=== PATIENT | female | born 1995 | race African-American/Black ===

== ENCOUNTER 2017-07-17 23:18 | Emergency (ER) | payer OTHER ==
[~2017-07-17] VITALS: Ht 195.6 cm; Wt 81.6 kg
[2017-07-18] MEDS ORDERED: IPRATROPIUM BROMIDE (0.02%) 0.5MG/2.5ML NEB HHN STA ×2 (00:19→03:26)
[2017-07-18] MEDS ORDERED: PREDNISONE 20MG TABLET PO STA (00:19)
[2017-07-18] MEDS ORDERED: ALBUTEROL (0.083%) 2.5MG/3ML NEB HHN STA ×2 (00:19→03:26)
[2017-07-18] MEDS ORDERED: KETOROLAC 60MG/2ML VIAL IM ONE (03:30)
[2017-07-18 04:32] VITALS: BP 132/80
== END 2017-07-18 04:36 | disposition home or self-care (01) ==
LOC: ER 23:18
DX: J45.909 Unspecified asthma, uncomplicated (principal); F17.200 Nicotine dependence, unspecified, uncomplicated; Z98.890 Other specified postprocedural states
CPT/HCPCS: 71045; 81025; 93005; 94640; 96372; 99284; J1885; J7512; J7611

== ENCOUNTER 2018-10-20 15:16 | Emergency (ER) | payer MEDICAID, OTHER ==
[~2018-10-20] VITALS: Ht 162.6 cm; Wt 76.9 kg
[2018-10-20] MEDS: IBUPROFEN 600MG TABLET PO ONE (16:45)
[2018-10-20] MEDS: HYDROCODONE/ACETAMINOPHEN 5/325MG TABLET PO ONE (16:47)
[2018-10-20] MEDS: NEOMY SULF/BACITRAC ZN/POLY OINT 28GM TOP SCH (17:13)
[2018-10-20 18:27] VITALS: BP 118/74
== END 2018-10-20 18:50 | disposition home or self-care (01) ==
LOC: ER 15:16
DX: S16.1XXA Strain of muscle, fascia and tendon at neck level, initial encounter (principal); S00.83XA Contusion of other part of head, initial encounter; J45.909 Unspecified asthma, uncomplicated; F17.200 Nicotine dependence, unspecified, uncomplicated; V49.49XA Driver injured in collision with other motor vehicles in traffic accident, initial encounter; Y93.89 Activity, other specified; Y92.89 Other specified places as the place of occurrence of the external cause; Y99.8 Other external cause status; Z98.890 Other specified postprocedural states
CPT/HCPCS: 70486; 72125; 81025; 99284; Z7610

== ENCOUNTER 2018-12-17 20:06 | Emergency (ER) | payer MEDICAID, OTHER ==
[~2018-12-17] VITALS: Ht 160 cm; Wt 73.0 kg
[2018-12-17 21:06] VITALS: BP 115/59
== END 2018-12-17 23:40 | disposition left against medical advice (07) ==
LOC: ER 20:06
DX: M54.9 Dorsalgia, unspecified (principal); R51 Headache; Z53.21 Procedure and treatment not carried out due to patient leaving prior to being seen by health care provider

== ENCOUNTER 2018-12-18 20:11 | Emergency (ER) | payer MEDICAID ==
[~2018-12-18] VITALS: Ht 160 cm; Wt 72.9 kg
[2018-12-18 21:13] VITALS: BP 122/69
[2018-12-18] MEDS ORDERED: IBUPROFEN 600MG TABLET PO ONE (22:30)
[2018-12-18] MEDS ORDERED: HYDROCODONE/ACETAMINOPHEN 10/325MG TABLET PO ONE (22:30)
== END 2018-12-18 22:40 | disposition left against medical advice (07) ==
LOC: ER 20:11
DX: S09.90XA Unspecified injury of head, initial encounter (principal); S39.012A Strain of muscle, fascia and tendon of lower back, initial encounter; J45.909 Unspecified asthma, uncomplicated; F17.200 Nicotine dependence, unspecified, uncomplicated; V43.62XA Car passenger injured in collision with other type car in traffic accident, initial encounter; Y93.9 Activity, unspecified; Y92.410 Unspecified street and highway as the place of occurrence of the external cause; Z71.6 Tobacco abuse counseling
CPT/HCPCS: 99281; 99406

== ENCOUNTER 2018-12-19 07:37 | Emergency (ER) | payer MEDICAID ==
[~2018-12-19] VITALS: Ht 170.2 cm; Wt 73.0 kg
[2018-12-19 11:28] VITALS: BP 121/65
== END 2018-12-19 11:29 | disposition home or self-care (01) ==
LOC: ER 07:37
DX: S33.9XXA Sprain of unspecified parts of lumbar spine and pelvis, initial encounter (principal); J45.909 Unspecified asthma, uncomplicated; V49.60XA Unspecified car occupant injured in collision with unspecified motor vehicles in traffic accident, initial encounter; Y93.9 Activity, unspecified; Y92.410 Unspecified street and highway as the place of occurrence of the external cause
CPT/HCPCS: 71045; 72100; 81025; 99284

== ENCOUNTER 2023-01-25 15:27 | Emergency (ER) | payer MEDICAID, OTHER ==
[~2023-01-25] VITALS: Ht 157.5 cm; Wt 65.0 kg
[2023-01-25 15:37] VITALS: TEMP 98.2; O2SAT 100
[2023-01-25 16:22] LABS: EOSINOPHILS % 3.6 % (0.0-5.0); HEMATOCRIT. 42.6 % (36.0-48.0); HEMOGLOBIN. 14.2 g/dL (12.0-16.0); LYMPHOCYTES % 45.8 % (20.0-50.0); MEAN CORPUSCULAR HEMOGLOBIN 28.6 pg (28.0-32.0); MEAN CORPUSCULAR HGB CONC 33.3 g/dL (31.0-37.0); MEAN PLATELET VOLUME 8.4 fl (7.4-10.4); MONOCYTES % 7.3 % (2.0-8.0); NEUTROPHILS % 42.3 % (40.0-76.0); PLATELET 247 x1000/uL (130-400); RED BLOOD CELL COUNT 4.95 mill/uL (4.2-5.4)
[2023-01-25 16:43] LABS: CHLORIDE 111 mEq/L (98-107); INDEX HEMOLYSI 1 (1-3); INDEX ICTERIC 1 (1-4); INDEX LIPEMIC 1 (1-3); POTASSIUM 3.7 mEq/L (3.5-5.1); SODIUM 142 mEq/L (136-145)
[2023-01-25 17:03] LABS: ALANINE AMINOTRANSFERASE 18 IU/L (13-61); ALBUMIN 3.7 g/dL (3.4-5.0); ASPARTATE AMINOTRANSFERASE 13 IU/L (15-37); BILIRUBIN TOTAL 0.5 mg/dL (0.1-1.0); CALCIUM 8.7 mg/dL (8.5-10.1); CARBON DIOXIDE 25 mEq/L (21-32); CREATININE 0.9 mg/dL (0.6-1.3); GLUCOSE 81 mg/dL (70-105); PROTEIN TOTAL 7.1 g/dL (6.0-8.3); UREA NITROGEN BLOOD 10 mg/dL (7-21)
[2023-01-25 17:15] VITALS: BP 138/61; PULSE 72; RESP 16
[2023-01-25] MEDS ORDERED: KETOROLAC 30MG/ML VIAL IM ONE (17:15)
[2023-01-25 18:06] LABS: CLARITY URINE CLEAR (CLEAR); COLOR URINE YELLOW (YELLOW); GLUCOSE URINE NEGATIVE (NEGATIVE); KETONES URINE NEGATIVE (NEGATIVE); LEUKOCYTE ESTERASE URINE NEGATIVE (NEGATIVE); NITRITE URINE NEGATIVE (NEGATIVE); OCCULT BLOOD URINE 3+ (NEGATIVE); PH URINE 6.5 (4.5-8.0); PROTEIN URINE NEGATIVE (NEGATIVE); SPECIFIC GRAVITY URINE 1.005 (1.005-1.030); UROBILINOGEN URINE 0.2 E.U./dL (0.2-1.0)
[2023-01-25 18:09] LABS: YEAST URINE NONE SEEN
[2023-01-25 18:40] LABS: RBC URINE 0-2 /hpf (0-2)
[2023-01-25 18:41] LABS: BACTERIA URINE 2+; SQUAMOUS EPITHELIAL CELL URINE FEW /lpf (RARE/1+)
[2023-01-25] MEDS ORDERED: NITR100C MT (19:31)
[2023-01-25] MEDS ORDERED: NAPR-681 MT (19:31)
== END 2023-01-25 19:59 | disposition home or self-care (01) ==
LOC: ER 15:51
DX: N39.0 Urinary tract infection, site not specified (principal); J45.909 Unspecified asthma, uncomplicated
CPT/HCPCS: 80053; 81003; 81025; 83690; 85025; 36415; 76830; 76856; 96372; 99285; J1885; Z7610

== ENCOUNTER 2023-04-11 08:55 | Emergency (ER) | payer MEDICAID ==
[~2023-04-11] VITALS: Ht 157.5 cm; Wt 62.0 kg
[~2023-04-11 08:55] MED LIST: NAPR-681 MT; NITR100C MT
[2023-04-11 09:01] VITALS: O2SAT 100
[2023-04-11 10:45] LABS: BASOPHILS % 0.7 % (0.0-2.0); EOSINOPHILS % 1.7 % (0.0-5.0); HEMATOCRIT. 42.7 % (36.0-48.0); HEMOGLOBIN. 14.4 g/dL (12.0-16.0); LYMPHOCYTES % 27.1 % (20.0-50.0); MEAN CORPUSCULAR HEMOGLOBIN 29.4 pg (28.0-32.0); MEAN CORPUSCULAR HGB CONC 33.7 g/dL (31.0-37.0); MEAN CORPUSCULAR VOLUME 87.2 fL (81.0-99.0); MEAN PLATELET VOLUME 7.7 fl (7.4-10.4); MONOCYTES % 6.9 % (2.0-8.0); NEUTROPHILS % 63.6 % (40.0-76.0); PLATELET 264 x1000/uL (130-400); RED BLOOD CELL COUNT 4.89 mill/uL (4.2-5.4); RED CELL DISTRIBUTION WIDTH 14.1 % (11.6-14.6); WHITE BLOOD COUNT 9.5 x1000/uL (4.5-11.0)
[2023-04-11 11:18] LABS: HCG SCREEN NEGATIVE
[2023-04-11 11:22] LABS: ALANINE AMINOTRANSFERASE 8 IU/L (10-49); ALBUMIN 4.3 g/dL (3.2-4.8); ASPARTATE AMINOTRANSFERASE 15 IU/L (<34); BILIRUBIN TOTAL 0.5 mg/dL (0.1-1.0); CALCIUM 9.1 mg/dL (8.7-10.4); CARBON DIOXIDE 30 mEq/L (21-32); CHLORIDE 109 mEq/L (98-107); CREATININE 0.8 mg/dL (0.6-1.0); GLUCOSE 96 mg/dL (70-105); POTASSIUM 3.7 mEq/L (3.5-5.1); PROTEIN TOTAL 6.6 g/dL (6.0-8.3); SODIUM 141 mEq/L (136-145); UREA NITROGEN BLOOD 10 mg/dL (9-23)
[2023-04-11] MEDS ORDERED: KETOROLAC 60MG/2ML VIAL IM ONE (12:45)
[2023-04-11] MEDS ORDERED: ACETAMINOPHEN 325MG TABLET PO ONE (12:45)
[2023-04-11 12:57] LABS: CLARITY URINE CLOUDY (CLEAR); COLOR URINE YELLOW (YELLOW); GLUCOSE URINE NEGATIVE (NEGATIVE); KETONES URINE NEGATIVE (NEGATIVE); LEUKOCYTE ESTERASE URINE NEGATIVE (NEGATIVE); NITRITE URINE NEGATIVE (NEGATIVE); OCCULT BLOOD URINE NEGATIVE (NEGATIVE); PROTEIN URINE NEGATIVE (NEGATIVE); SPECIFIC GRAVITY URINE 1.025 (1.005-1.030); UROBILINOGEN URINE 0.2 E.U./dL (0.2-1.0)
[2023-04-11 13:13] LABS: SQUAMOUS EPITHELIAL CELL URINE 3+ /lpf (RARE/1+)
[2023-04-11 13:14] LABS: BACTERIA URINE 1+; MUCUS URINE TRACE /lpf (< = 2+)
[2023-04-11 13:15] LABS: RBC URINE NONE SEEN /hpf (0-2); WBC URINE 0-2 /hpf (0-2)
[2023-04-11] MEDS ORDERED: ACETAMINOPHEN 325MG TABLET PO NR (14:33)
[2023-04-11] MEDS ORDERED: KETOROLAC 60MG/2ML VIAL IM NR (14:33)
[2023-04-11] MEDS ORDERED: IBUP-2028 MT (15:12)
[2023-04-11] MEDS ORDERED: TOPUD PO (15:12)
[2023-04-11 15:49] VITALS: BP 131/66; PULSE 55; RESP 15; TEMP 98.2
[2023-04-14 04:09] LABS: CHLAMYDIA TRACHOMATIS NAA Negative (Negative); NEISSERIA GONORRHOEAE NAA Negative (Negative)
== END 2023-04-11 15:51 | disposition home or self-care (01) ==
LOC: ER 08:55
DX: N83.201 Unspecified ovarian cyst, right side (principal); J45.909 Unspecified asthma, uncomplicated
CPT/HCPCS: 99285; 74176; 76830; 76856; 87491; 87591; 80053; 81003; 84703; 83690; 85025; 36415; 96372; J1885

== ENCOUNTER → 2023-05-31 | Emergency (ER) | payer MEDICAID ==
[~2023-05-31] VITALS: Ht 160 cm; Wt 65.0 kg
[~2023-05-31] MED LIST changes: +IBUP-2028 MT; +TOPUD PO
[2023-05-31 08:08] VITALS: TEMP 98.5; O2SAT 100
[2023-05-31 08:45] VITALS: BP 127/69; PULSE 74; RESP 18
[2023-05-31] MEDS: IBUPROFEN 600MG TABLET PO ONE (08:45)
== END ==
LOC: ER 08:03
DX: S09.90XA Unspecified injury of head, initial encounter (principal); J45.909 Unspecified asthma, uncomplicated; Z98.890 Other specified postprocedural states; W22.8XXA Striking against or struck by other objects, initial encounter; Y93.89 Activity, other specified; Y92.89 Other specified places as the place of occurrence of the external cause; Y99.8 Other external cause status
CPT/HCPCS: 81025; 99282

== ENCOUNTER 2024-06-18 08:24 | Emergency (ER) | payer MEDICAID ==
[~2024-06-18] VITALS: Ht 157.5 cm; Wt 66.0 kg
[2024-06-18 08:28] VITALS: O2SAT 100
[2024-06-18 08:30] VITALS: BP 144/99; TEMP 37.1
[2024-06-18] MEDS: PREDNISONE 20MG TABLET PO STA (09:05)
[2024-06-18] MEDS: ACETAMINOPHEN 325MG TABLET PO STA (09:06)
[2024-06-18 09:20] VITALS: PULSE 98; RESP 22; O2SAT 100
[2024-06-18] MEDS: IPRATROPIUM BROMIDE (0.02%) 0.5MG/2.5ML NEB HHN STA (09:20)
[2024-06-18] MEDS: ALBUTEROL (0.083%) 2.5MG/3ML NEB HHN STA (09:20)
[2024-06-18 09:54] LABS: INFLUENZA TYPE A Presumptive Negative (Pres. Neg.); INFLUENZA TYPE B Presumptive Negative (Pres. Neg.)
[2024-06-18 09:57] LABS: RESPIRATORY SYNCYTIAL VIRUS Not Detected (Not Detectd)
[2024-06-18] MEDS ORDERED: P50 PO (10:04)
[2024-06-18] MEDS ORDERED: TOPUD PO (10:04)
[2024-06-18] MEDS ORDERED: ALBU90AE INH (10:04)
[2024-06-18] MEDS: KETOROLAC 30MG/ML VIAL IM ONE (10:27)
== END 2024-06-18 10:37 | disposition home or self-care (01) ==
LOC: ER 08:24
DX: B34.9 Viral infection, unspecified (principal); J45.909 Unspecified asthma, uncomplicated; Z20.822 Contact with and (suspected) exposure to COVID-19; Z28.39 Other underimmunization status; Z79.1 Long term (current) use of non-steroidal anti-inflammatories (NSAID); Z79.52 Long term (current) use of systemic steroids
CPT/HCPCS: 81025; 87420; 87804 ×2; 71045; 94640; 99284; 87426; J7512; J1885; Z7610

== ENCOUNTER 2024-09-16 09:19 | Emergency (ER) | payer MEDICAID ==
[~2024-09-16] VITALS: Ht 160 cm; Wt 69.0 kg
[~2024-09-16 09:19] MED LIST changes: +ALBU90AE INH; +P50 PO
[2024-09-16 09:30] VITALS: O2SAT 100
[2024-09-16 12:30] VITALS: BP 124/83; PULSE 65; RESP 18; TEMP 36.9; O2SAT 100
[2024-09-16] MEDS ORDERED: ACYC200C31 MT (12:36)
== END 2024-09-16 13:20 | disposition home or self-care (01) ==
LOC: ER 09:19
DX: B00.9 Herpesviral infection, unspecified (principal); J45.909 Unspecified asthma, uncomplicated; Z79.899 Other long term (current) drug therapy
CPT/HCPCS: 99283; Z7610